=== PATIENT | male | born 1965 | race Caucasian/White ===

== ENCOUNTER 2024-09-17 08:54 | Outpatient (AMB) | payer BC, SELFPAY ==
--- NOTE | 2024-09-17 09:09 | A.OFFPC_ITS ---
Vital Signs 09/17/24 09:10 Height 5 ft 9.75 in Weight 267 lb BMI 38.6 BP 120/86 Blood Pressure Location Rt brachial Position Sitting Pulse 86 Pulse Source Pulse Oximeter Pulse Oximetry (%) 97 Oxygen Delivery Method Room Air Intake Visit Reasons: establish care Lead Material Handler Required: No Accompanied by: Self / Same As Patient Allergies No Known Allergies Allergy (Verified 09/17/24 09:58) Medication List - Last Reconciled 09/17/24 by Hill Campbell MD gabapentin 300 mg PO BID Tobacco use date assessed: 09/17/24 Dental Screening Dental Screen Date: 09/17/24 Did you have a dental visit in the last 12 months?: Yes Did you have a dental problem in the last 6 months where you did not have access to dental care?: No Was dental information given to patient?: Patient has dentist HPI establish care HPI Details Patient comes in today for his annual physical examination and to establish care - is a new patient to the practice Patient and his wlfe, who are both retired police officers, 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 [place] Patient states that he has a history of trigeminal neuralgia, is currently on Gabapentin 300 mg BID and has an appointment to see neurology at [facility] tomorrow morning States that he feels okay otherwise He denies any headaches or dizziness Denies any chest pains, no shortness of breath No nausea/vomiting, no abdominal pain No change in bowel habits noted He denies any acute urinary symptoms He would like to get a referral to Dermatology to have a couple of dark lesions on the left side of his face/cheek checked out States that he had some follow up labs done with his previous PCP back in April 2024 [facility] - he was able to pull up his lab results on his phone Labs done back then showed a HgbA1c of 5.7% and his total cholesterol was elevated although his HDL cholesterol was also high - patient states that he will try to get a printout of these and send them to us to include in his records States that he also had a repeat colonoscopy done back in April 2024 - (+) tubular adenomas and he was advised to get a repeat colonoscopy in 5 years (2028) Patient also has obstructive sleep apnea and has been using his CPAP device regularly for several years now and would like to know who he can reach out to here in [facility] to get a replacement on some parts/supplies for his CPAP device [facility] Medical History (Updated 09/20/24 @ 18:33 by Hill Campbell MD) Obesity (BMI 30-39.9) Vitamin D deficiency Impaired fasting glucose Pure hypercholesterolemia Obstructive sleep apnea Trigeminal neuralgia Surgical History (Updated 09/17/24 @ 10:03 by Hill Campbell MD) History of colonoscopy History of vasectomy Hx of LASIK History of rotator cuff surgery Family History Other Dementia Heart disease Social History Housing: House Patient Tobacco Use Status: Never used Tobacco e-Cigarette/Vaping Use: Never Used Second Hand Smoke Exposure: No service: No Current occupational status: retired Current occupational exposures/hazards: No Cognitive needs: No Hearing needs: No Vision needs: No Questionnaire PHQ-9 Over the last 2 weeks, how often have you been bothered by any of the following problems? 1. Little interest or pleasure in doing things: not at all 2. Feeling down, depressed, or hopeless: not at all 3. Trouble falling or staying asleep, or sleeping too much: not at all 4. Feeling tired or having little energy: not at all 5. Poor appetite or overeating: not at all 6. Feeling bad about yourself - or that you are a failure or have let yourself or your family down: not at all 7. Trouble concentrating on things, such as reading the newspaper or watching television: not at all 8. Moving or speaking so slowly that other people could have noticed. Or the opposite - being so fidgety or restless that you have been moving around a lot more than usual: not at all 9. Thoughts that you would be better off or of hurting yourself in some way: not at all Total score: 0 Depression Screening Interpretation: Negative Depression Screening Done: Yes 38340 - PHQ-9 Billing: Yes Source: Developed by Drs. Chetan Beebe, Arabella Sethi, Herbert Mckeon and colleagues, with an educational schuyler from [employer]. Thrive Questionnaire Date Thrive assessed: 09/17/24 I am a: Patient What is your living situation today?: I choose not to answer this question Within the past 12 months, did the food you bought not last and you didn't have the money to get more?: I choose not to answer this question Within the past 12 months, did you worry whether your food would run out before you got money to buy more?: I choose not to answer this question Do you have trouble paying for medicines?: I choose not to answer this question Do you have trouble getting transportation to medical appointments?: I choose not to answer this question Do you have trouble paying your heating and electricity bill?: I choose not to answer this question Do you have trouble taking care of your child, family member or friend?: I choose not to answer this question Do you have trouble with day-to-day activities such as bathing, preparing meals, shopping, managing finances, etc.?: I choose not to answer this question Are you currently unemployed and looking for a job?: I choose not to answer this question Are you interested in more education?: I choose not to answer this question Please select the resources that you would like help with: None Currently or been in a relationship where the following occur: No concerns reported THRIVE Score: 0 AUDIT C Alcohol Use Questionnaire (AUDIT-C) 1. How often do you have a drink containing alcohol?: Never 3. How often do you have six or more drinks on one occasion?: Never Total Score: 0 Score Reviewed/Action Taken: Yes IRENE-7 AMB Questionnaire IRENE-7 Date IRENE - 7 assessed: 09/17/24 Feeling nervous, anxious, or on edge: 0 = Not at all Not being able to stop or control worryin = Not at all Worrying too much about different things: 0 = Not at all Trouble relaxin = Not at all Being so restless that it is hard to sit still: 0 = Not at all Becoming easily annoyed or irritable: 0 = Not at all Feeling afraid as if something awful might happen: 0 = Not at all Total IRENE-7 score (0-4 normal; 5-9 mild; 10-14 moderate; 15-21 severe): 0 Source: Developed by Drs. Chetan Beebe, Arabella Sethi, Herbert Mckeon and colleagues, with an educational schuyler from [employer]. Review of Systems Const Denies chills, Denies fatigue, Denies fever(s), Denies headache(s), Denies malaise and Denies weakness Eyes Denies blurry vision, Denies change in vision, Denies irritation and Denies itchy eyes ENT Denies dysphagia, Denies dizziness, Denies otalgia, Denies headache(s), Denies nasal congestion, Denies neck pain, Denies odynophagia and Denies sore throat Card Denies chest pain, Denies rapid heart rate, Denies irregular heart rhythm, Denie s palpitations and Denies dyspnea Resp Denies chest congestion, Denies cough, Denies dyspnea and Denies wheezing GI Denies abdominal pain, Denies bloating, Denies constipation, Denies dysphagia, Denies heartburn, Denies diarrhea, Denies nausea, Denies odynophagia and Denies vomiting Denies hematuria, Denies difficulty urinating, Denies dysuria, Denies urinary frequency and Denies urinary urgency Musc Denies back pain, Denies arthralgias, Denies joint swelling, Denies muscle weakness and Denies neck pain Skin/Breast Details: (+) couple of small hyperpigmented lesions on the left side of the face/cheek Denies change in pigmentation, Denies rash and Denies unusual bruising Neuro Denies dizziness, Denies headache(s), Denies paresthesias and Denies weakness Endo Denies fatigue and Denies palpitations Aller/Immun Denies itchy eyes and Denies wheezing Physical exam (Primary Care) Vital Signs: Last Vital Signs Pulse 86 09/17/24 09:10 BP 120/86 09/17/24 09:10 Pulse Ox 97 09/17/24 09:10 Oxygen Delivery Method Room Air 09/17/24 09:10 BMI result Body Mass Index 38.6 Tobacco/Smoking Status: Tobacco use Status Tobacco use date assessed 09/17/24 09/17/24 09:12 Patient Tobacco Use Status Never used Tobacco 09/17/24 09:16 e-Cigarette/Vaping Use Never Used 09/17/24 09:16 PHQ-9: PHQ-9 Score PHQ-9: Total score 0 09/17/24 10:00 Depression Screening Interpretation: Negative Thrive Assessment: Date of Thrive Assessment Date Thrive assessed 09/17/24 09/17/24 09:12 Currently or been in a relationship where the following occur: No concerns reported Const General: no acute distress, alert and awake Orientation/consciousness: patient oriented x3 HENMT Head: Yes normocephalic and Yes atraumatic Ears: external ears normal, TM's normal bilaterally and EAC's normal General nose exam: No nasal discharge present Face and sinus: Yes normal facial exam and Yes sinuses nontender Teeth and gingiva: dentition normal Throat: Yes posterior oropharynx normal and Yes tonsils normal (no TP congestion) Eyes Eyelids: Yes eyelids normal Conjunctivae: conjunctivae normal Pupils: Equal, round and reactive pupils present EOM: EOMs intact bilaterally Neck Neck: Yes supple and No lymphadenopathy Thyroid: Thyroid normal Resp Auscultation: clear to auscultation bilaterally, no rales and no wheezes Cardio Rate: regular rate Rhythm: regular rhythm Heart sounds: no murmurs GI Palpation (GI): Soft to palpation, nontender and No hepatosplenomegaly present Auscultation: normal bowel sounds General: Yes no CVA tenderness Back/Spine/Pelvis Back: no CVA tenderness Thoracic/Lumbar Spine: thoracic and lumbar spine normal to inspection Skin Other: (+) 2 small hyperpigmented skin lesions on the left side of the face / cheek Rashes: no rashes Neuro General: patient oriented x3, moves all extremities, no focal motor deficits and CN's II-XI intact bilaterally Cranial nerves: Yes Equal, round and reactive pupils present Cognition (Neuro): normal cognition Gait exam (Neuro): Normal gait present Extrem General: Yes no clubbing, cyanosis or edema Coding Level of Care Code New Pt Prev Care 40-64y(18787) Diagnoses Annual physical exam Z00.00 Trigeminal neuralgia G50.0 Pure hypercholesterolemia E78.00 Impaired fasting glucose R73.01 Obstructive sleep apnea G47.33 Vitamin D deficiency E55.9 Hyperpigmented skin lesion L81.9 Obesity (BMI 30-39.9) E66.9 Additional Codes PHQ-9 - 77553 - PHQ-9 Billing: Yes ([id number]) Assessment & Plan Assessment & Plan (1) Annual physical exam: Code(s): Z00.00 - Encounter for general adult medical examination without abnormal findings Category: Medical Plan: Results of his labs done back in April 2024 reviewed - this was done mostly on the patient's phone Patient states that he would try to get a printout of these results and send it to us to include in his chart He is up-to-date with his colon cancer screening and will be due for repeat colonoscopy in 2028 (2) Trigeminal neuralgia: Comment: since 2017 Code(s): G50.0 - Trigeminal neuralgia Category: Medical Plan: Continue Gabapentin 300 mg BID He will be seeing [facility] Neurology tomorrow for his initial visit with them (3) Pure hypercholesterolemia: Code(s): E78.00 - Pure hypercholesterolemia, unspecified Category: Medical Plan: Patient has a high total cholesterol level on his labs done back in April 2024 but his HDL cholesterol was also very high; LDL cholesterol was acceptable Reinforced low-cholesterol diet Will recheck his labs and fasting lipids in 4 months for follow-up (4) Impaired fasting glucose: Code(s): R73.01 - Impaired fasting glucose Category: Medical Plan: Patient's HgbA1c was at 5.7% on his labs done back in April 2024 Reinforced low calorie/low carb diet; exercise as tolerated (5) Obstructive sleep apnea: Code(s): G47.33 - Obstructive sleep apnea (adult) (pediatric) Category: Medical Plan: To continue using his CPAP device regularly when sleeping at night - patient states that he has experienced significant improvement of his symptoms since he started using his CPAP device years ago and continues to benefit from its daily use He was provided with the phone numbers for a few companies here in [facility] where he can get his supplies replaced, including [employer], [employer] and [employer] Discussed with patient that at some point, we may also need to refer him to Sleep Medicine for continuing management and follow-up especially if his CPAP device will need to be replaced once it starts wearing down (6) Vitamin D deficiency: Code(s): E55.9 - Vitamin D deficiency, unspecified Category: Medical Plan: Will recheck his vitamin-D level for follow-up in 4 months (7) Hyperpigmented skin lesion: Code(s): L81.9 - Disorder of pigmentation, unspecified Category: Medical Plan: Per request, will refer him to Dermatology for further evaluation and management (8) Obesity (BMI 30-39.9): Code(s): E66.9 - Obesity, unspecified Category: Medical Plan: Reinforced diet/exercise as tolerated/lose weight Plan Follow-up in 4 months Orders: Orders Comprehensive [place]. Panel Fast 4 Months E78.00 - Pure hypercholesterolemia, unspecified, Z00.00 - Encounter for general adult medical examination without abnormal findings Lipid Panel 4 Months E78.00 - Pure hypercholesterolemia, unspecified, Z00.00 - Encounter for general adult medical examination without abnormal findings TSH reflex Free T4 4 Months E78.00 - Pure hypercholesterolemia, unspecified, Z00.00 - Encounter for general adult medical examination without abnormal findings UA CC w/rflx Micro + Cult 4 Months R30.0 - Dysuria, Z00.00 - Encounter for general adult medical examination without abnormal findings Vitamin D 25-OH Total 4 Months E55.9 - Vitamin D deficiency, unspecified, Z00. 00 - Encounter for general adult medical examination without abnormal findings Hemoglobin A1c 4 Months R73.01 - Impaired fasting glucose, Z00.00 - Encounter for general adult medical examination without abnormal findings Complete Blood Count Auto Diff 4 Months D64.9 - Anemia, unspecified, Z00.00 - Encounter for general adult medical examination without abnormal findings Referrals Dermatology Referral L81.9 - Disorder of pigmentation, unspecified
[2024-09-17 09:10] VITALS: BP 120/86; PULSE 86; O2SAT 97; BMI 38.6
== END 2024-09-17 10:17 | disposition home or self-care (01) ==
PROVIDERS: Visit Provider Internal Medicine
DX: Z00.00 Encounter for general adult medical examination without abnormal findings (principal); G50.0 Trigeminal neuralgia; E66.9 Obesity, unspecified; Z68.38 Body mass index [BMI] 38.0-38.9, adult; E78.00 Pure hypercholesterolemia, unspecified; R73.01 Impaired fasting glucose; G47.33 Obstructive sleep apnea (adult) (pediatric); E55.9 Vitamin D deficiency, unspecified; L81.9 Disorder of pigmentation, unspecified

== ENCOUNTER → 2024-09-17 08:54 | Outpatient (BNVA) | payer BC, SELFPAY | PROVIDERS: Visit Provider Internal Medicine | DX: Z00.00 Encounter for general adult medical examination without abnormal findings (principal); G50.0 Trigeminal neuralgia; E78.00 Pure hypercholesterolemia, unspecified; R73.01 Impaired fasting glucose; G47.33 Obstructive sleep apnea (adult) (pediatric); E55.9 Vitamin D deficiency, unspecified; L81.9 Disorder of pigmentation, unspecified; E66.9 Obesity, unspecified; Z68.38 Body mass index [BMI] 38.0-38.9, adult; Z79.899 Other long term (current) drug therapy; Z99.89 Dependence on other enabling machines and devices | CPT/HCPCS: 96127 ==

== ENCOUNTER 2025-01-14 08:57 | Outpatient (REF) | payer BC, SELFPAY ==
[2025-01-14 09:47] LABS: MANUAL DIFF FLAG NO
[2025-01-14 09:55] LABS: Basophils Percent Auto 0.6 % (0-2); Eosinophils Absolute Auto 0.3 X10*3/uL (0.0-0.4); Eosinophils Percent Auto 4.6 % (0-4); Hematocrit 45.3 % (42.0-52.0); Imm Gran Abs Auto 0.01 X10*3/uL (0.00-0.03); Imm Gran Pct Auto 0.2 % (0.0-0.4); Lymphocytes Absolute Auto 1.9 X10*3/uL (1.2-4.9); Lymphocytes Percent Auto 29.7 % (20-40); Mean Corpuscular HGB Conc 33.1 g/dl (31.0-36.0); Mean Corpuscular Hemoglobin 29.5 pg (27.0-33.0); Mean Corpuscular Volume 89.2 fL (80.0-98.0); Mean Platelet Volume 8.5 fL (9.4-12.4); Monocytes Absolute Auto 0.8 X10*3/uL (0.1-1.2); Monocytes Percent Auto 13.3 % (2-11); Neutrophils Absolute Auto 3.2 x10*3/uL (2.0-8.3); Neutrophils Percent Auto 51.6 % (45-73); Platelet Count 270 X10*3/uL (160-400); Red Blood Count 5.08 X10*6/uL (4.60-5.80); Red Cell Distribution Width 12.2 % (11.0-16.0); White Blood Count 6.3 X10*3/uL (4.8-10.8)
[2025-01-14 10:04] LABS: Estimated Average Glucose 111 mg/dL; Hemoglobin A1C 139.4483 umol/L; Hemoglobin A1c % 5.5 % (<6.0); Total Hemoglobin (HGBA1C) 3843.0949 umol/L
[2025-01-14 10:08] LABS: Appearance Urine Clear; Color Urine Yellow; Glucose Urine UA Negative (Negative); Leukocyte Esterase Urine Negative (Negative); Nitrite Urine Negative (Negative); PH 5.5 (5.0-9.0); Specific Gravity - Urine 1.025 (1.005-1.025); Urine Blood Negative (Negative); Urine Ketones Trace mg/dL (Negative); Urine Protein Negative (Neg-Trace)
[2025-01-14 10:33] LABS: Alanine Aminotransferase 21 U/L (0-40); Albumin Level 4.2 g/dL (3.5-5.0); Alkaline Phosphatase 81 U/L (39-117); Anion Gap 12 (12-20); Aspartate Amino Transferase 29 U/L (5-37); Bilirubin Total 0.7 mg/dL (0.0-1.0); Blood Urea Nitrogen 18 mg/dL (9-16); Calcium 9.5 mg/dL (8.4-10.2); Carbon Dioxide 23 mmol/L (22-29); Chloride 108 mmol/L (96-108); Cholesterol 214 mg/dL (<200); Estimated Glomerular Filt Rate > 60; Glucose Fasting 107 mg/dL (60-99); HDL Cholesterol 54 mg/dL (>40); LDL Cholesterol Calculated 143 mg/dL (<100); Potassium 4.2 mmol/L (3.3-5.1); Sodium 139 mmol/L (135-145); Total Protein 7.6 g/dL (6.5-8.0); Triglycerides 87 mg/dL (<150)
[2025-01-14 10:42] LABS: TSH reflex Free T4 1.39 uIU/mL (0.32-4.0); Vitamin D 25-OH Total 27.4 ng/mL (>30)
== END 2025-01-14 08:58 | disposition home or self-care (01) ==
LOC: HO.10HDL 08:57
PROVIDERS: Visit Provider Internal Medicine
DX: Z00.00 Encounter for general adult medical examination without abnormal findings (principal); E78.00 Pure hypercholesterolemia, unspecified; R30.0 Dysuria; D64.9 Anemia, unspecified; R73.01 Impaired fasting glucose; E55.9 Vitamin D deficiency, unspecified
CPT/HCPCS: 36415; 80053; 80061; 81003; 82306; 83036; 84443; 85025

== ENCOUNTER 2025-01-18 12:54 | Outpatient (AMB) | payer BC, SELFPAY ==
[2025-01-18 12:57] VITALS: BP 140/90; PULSE 88; O2SAT 97; BMI 39.1
--- NOTE | 2025-01-18 12:57 | A.OFFPC_ITS ---
Vital Signs 01/18/25 12:57 01/18/25 13:35 Height 5 ft 9.75 in Weight 270 lb 8 oz BMI 39.1 BP 140/90 H 140/88 H Blood Pressure Location Lt brachial Lt brachial Position Sitting Sitting Pulse 88 Pulse Source Pulse Oximeter Pulse Oximetry (%) 97 Oxygen Delivery Method Room Air Intake Visit Reasons: 4 Month F/U International Project Manager Required: No Accompanied by: Self / Same As Patient Allergies No Known Allergies Allergy (Verified 01/18/25 13:16) Medication List - Last Reconciled 01/18/25 by Hill Campbell MD No Known Home Meds Tobacco use date assessed: 01/18/25 Dental Screening Dental Screen Date: 01/18/25 Did you have a dental visit in the last 12 months?: No Did you have a dental problem in the last 6 months where you did not have access to dental care?: No Was dental information given to patient?: No HPI 4 Month F/U HPI Details Patient comes in today for his follow up visit States that he feels okay He denies any headaches or dizziness Denies any chest pains, no shortness of breath No nausea/vomiting, no abdominal pain No change in bowel habits noted He had his follow up labs done a few days ago - to discuss his results [facility] Medical History Obesity (BMI 30-39.9) Vitamin D deficiency Impaired fasting glucose Pure hypercholesterolemia Obstructive sleep apnea Trigeminal neuralgia Surgical History History of colonoscopy History of vasectomy Hx of LASIK History of rotator cuff surgery Family History Other Dementia Heart disease Social History Housing: House Patient Tobacco Use Status: Never used Tobacco e-Cigarette/Vaping Use: Never Used Second Hand Smoke Exposure: No service: No Current occupational status: retired Current occupational exposures/hazards: No Cognitive needs: No Hearing needs: No Vision needs: No Questionnaire PHQ-9 Over the last 2 weeks, how often have you been bothered by any of the following problems? 1. Little interest or pleasure in doing things: not at all 2. Feeling down, depressed, or hopeless: not at all 3. Trouble falling or staying asleep, or sleeping too much: not at all 4. Feeling tired or having little energy: not at all 5. Poor appetite or overeating: not at all 6. Feeling bad about yourself - or that you are a failure or have let yourself or your family down: not at all 7. Trouble concentrating on things, such as reading the newspaper or watching television: not at all 8. Moving or speaking so slowly that other people could have noticed. Or the opposite - being so fidgety or restless that you have been moving around a lot more than usual: not at all 9. Thoughts that you would be better off or of hurting yourself in some way: not at all Total score: 0 Depression Screening Interpretation: Negative Depression Screening Done: Yes 59448 - PHQ-9 Billing: Yes Source: Developed by Drs. Chetan Beebe, Arabella Sethi, Herbert Mckeon and colleagues, with an educational schuyler from [employer]. Thrive Questionnaire Date Thrive assessed: 01/18/25 I am a: Patient What is your living situation today?: I choose not to answer this question Within the past 12 months, did the food you bought not last and you didn't have the money to get more?: I choose not to answer this question Within the past 12 months, did you worry whether your food would run out before you got money to buy more?: I choose not to answer this question Do you have trouble paying for medicines?: I choose not to answer this question Do you have trouble getting transportation to medical appointments?: I choose not to answer this question Do you have trouble paying your heating and electricity bill?: I choose not to answer this question Do you have trouble taking care of your child, family member or friend?: I choose not to answer this question Do you have trouble with day-to-day activities such as bathing, preparing meals, shopping, managing finances, etc.?: I choose not to answer this question Are you currently unemployed and looking for a job?: I choose not to answer this question Are you interested in more education?: I choose not to answer this question Please select the resources that you would like help with: None Currently or been in a relationship where the following occur: I choose not to answer THRIVE Score: 0 AUDIT C Alcohol Use Questionnaire (AUDIT-C) 1. How often do you have a drink containing alcohol?: Monthly or less 2. How many drinks containing alcohol do you have on a typical day when you are drinking?: 1 or 2 3. How often do you have six or more drinks on one occasion?: Less than monthly Total Score: 2 Score Reviewed/Action Taken: Yes IRENE-7 AMB Questionnaire IRENE-7 Date IRENE - 7 assessed: 01/18/25 Feeling nervous, anxious, or on edge: 0 = Not at all Not being able to stop or control worryin = Not at all Worrying too much about different things: 0 = Not at all Trouble relaxin = Not at all Being so restless that it is hard to sit still: 0 = Not at all Becoming easily annoyed or irritable: 0 = Not at all Feeling afraid as if something awful might happen: 0 = Not at all Total IRENE-7 score (0-4 normal; 5-9 mild; 10-14 moderate; 15-21 severe): 0 Source: Developed by Drs. Chetan Beebe, Arabella Sethi, Herbert Mckeon and colleagues, with an educational schuyler from [employer]. Review of Systems Const Denies chills, Denies fatigue, Denies fever(s) and Denies headache(s) ENT Denies dysphagia, Denies dizziness, Denies otalgia, Denies headache(s), Denies neck pain, Denies odynophagia and Denies sore throat Card Denies chest pain, Denies irregular heart rhythm, Denies palpitations and Denies dyspnea Resp Denies chest congestion, Denies cough and Denies dyspnea GI Denies abdominal pain, Denies constipation, Denies dysphagia, Denies heartburn, Denies diarrhea, Denies nausea, Denies odynophagia and Denies vomiting Denies difficulty urinating, Denies dysuria and Denies urinary frequency Musc Denies back pain, Denies arthralgias and Denies neck pain Skin/Breast Denies rash Neuro Denies dizziness, Denies headache(s) and Denies paresthesias Endo Denies fatigue and Denies palpitations Physical exam (Primary Care) Vital Signs: Last Vital Signs Pulse 88 05/05/25 12:57 BP 140/90 H 01/18/25 12:57 Pulse Ox 97 01/18/25 12:57 Oxygen Delivery Method Room Air 01/18/25 12:57 BMI result Body Mass Index 39.1 Tobacco/Smoking Status: Tobacco use Status Tobacco use date assessed 01/18/25 01/18/25 13:00 Patient Tobacco Use Status Never used Tobacco 01/18/25 13:00 e-Cigarette/Vaping Use Never Used 01/18/25 13:00 PHQ-9: PHQ-9 Score PHQ-9: Total score 0 01/18/25 13:00 Depression Screening Interpretation: Negative Thrive Assessment: Date of Thrive Assessment Date Thrive assessed 01/18/25 01/18/25 13:00 Currently or been in a relationship where the following occur: I choose not to answer Const General: no acute distress and alert HENMT Ears: TM's normal bilaterally and EAC's normal Throat: Yes posterior oropharynx normal and Yes tonsils normal (no TP congestion) Neck Neck: Yes supple and No lymphadenopathy Thyroid: Thyroid normal Resp Auscultation: clear to auscultation bilaterally, no rales and no wheezes Cardio Rate: regular rate Rhythm: regular rhythm Heart sounds: no murmurs GI Palpation (GI): Soft to palpation and nontender Auscultation: normal bowel sounds General: Yes no CVA tenderness Back/Spine/Pelvis Back: no CVA tenderness Thoracic/Lumbar Spine: thoracic and lumbar spine normal to inspection Skin Rashes: no rashes Extrem General: Yes no clubbing, cyanosis or edema Results Reviewed Results Reviewed: Laboratory Tests 01/14/25 01/14/25 09:00 09:05 WBC 6.3 Hgb 15.0 Hct 45.3 Plt Count 270 Sodium 139 Potassium 4.2 Creatinine 1.01 Estimated GFR > 60 Fasting Glucose 107 H Hemoglobin A1c % 5.5 Calcium 9.5 AST 29 ALT 21 Triglycerides 87 Cholesterol 214 H LDL Cholesterol, Calc 143 H HDL Cholesterol 54 25-OH Vitamin D Total 27.4 L TSH 1.39 Ur Specific [place] 1.025 Urine Protein Negative Urine Glucose (UA) Negative Urine Blood Negative Urine Nitrite Negative Ur Leukocyte Esterase Negative Coding Level of Care Code Est Pt Level 4 (54471) Complex EM visit Add On G2211 Diagnoses Pure hypercholesterolemia E78.00 Impaired fasting glucose R73.01 Elevated blood pressure reading in office without diagnosis of hypertension R03.0 Trigeminal neuralgia G50.0 Obstructive sleep apnea G47.33 Vitamin D deficiency E55.9 Obesity (BMI 30-39.9) E66.9 Additional Codes PHQ-9 - 42338 - PHQ-9 Billing: Yes ([id number]) Assessment & Plan Assessment & Plan (1) Pure hypercholesterolemia: Code(s): E78.00 - Pure hypercholesterolemia, unspecified Category: Medical Plan: Results of his labs done a few days ago reviewed and discussed with patient - he is advised that his total and LDL cholesterol levels are high (214 mg/dl and 143 mg/dl respectively); HDL is also slightly higher than average at 54 mg/dl Reinforced low-cholesterol diet Will recheck his labs and fasting lipids in 4 months for follow-up (2) Impaired fasting glucose: Code(s): R73.01 - Impaired fasting glucose Category: Medical Plan: Patient's FBS was slightly elevated at 107 mg/dl but his HgbA1c remains normal at 5.5% (was at 5.7% back in April 2024) Reinforced low calorie/low carb diet; exercise as tolerated (3) Elevated blood pressure reading in office without diagnosis of hypertension: Code(s): R03.0 - Elevated blood-pressure reading, without diagnosis of hypertension Category: Medical Plan: He is advised that his initial BP here in the office is high at 140/90 mm and repeat BP a few minutes later is also high at 140/88 mm Advised goal is systolic BP of 120 mm or less Discussed low sodium diet Patient is instructed to continue monitoring his blood pressure regularly and to call for further instructions if his BP is consistently high over the next few weeks (4) Trigeminal neuralgia: Comment: since 2018 Code(s): G50.0 - Trigeminal neuralgia Category: Medical Plan: States that his jaw symptoms have mostly subsided and have not bothered him too much lately Continue Gabapentin 300 mg BID - he takes this PRN for now Follow up with [facility] as scheduled (5) Obstructive sleep apnea: Code(s): G47.33 - Obstructive sleep apnea (adult) (pediatric) Category: Medical Plan: Continue using his CPAP device regularly when sleeping at night - patient states that he has experienced significant improvement of his symptoms since he started using his CPAP device years ago and continues to benefit from its daily use (6) Vitamin D deficiency: Code(s): E55.9 - Vitamin D deficiency, unspecified Category: Medical Plan: He is advised that his Vitamin D level was slightly low on his recent labs and he should start back on OTC Vitamin D3 1000 units QD (7) Obesity (BMI 30-39.9): Code(s): E66.9 - Obesity, unspecified Category: Medical Plan: Reinforced diet/exercise as tolerated/lose weight Plan Follow-up in 4 months Orders: Orders Lipid Panel 4 Months E78.00 - Pure hypercholesterolemia, unspecified Hemoglobin A1c 4 Months E11.9 - Type 2 diabetes mellitus without complications Comprehensive [place]. Panel Fast 4 Months E78.00 - Pure hypercholesterolemia, unspecified UA CC w/rflx Micro + Cult 4 Months R30.0 - Dysuria Vitamin D 25-OH Total 4 Months E55.9 - Vitamin D deficiency, unspecified
[2025-01-18 13:35] VITALS: BP 140/88
== END 2025-01-18 13:59 | disposition home or self-care (01) ==
LOC: HO.HMCH 12:55
PROVIDERS: PCP Internal Medicine; Visit Provider Internal Medicine
DX: E78.00 Pure hypercholesterolemia, unspecified (principal); R73.01 Impaired fasting glucose; E66.9 Obesity, unspecified; Z68.39 Body mass index [BMI] 39.0-39.9, adult; R03.0 Elevated blood-pressure reading, without diagnosis of hypertension; G50.0 Trigeminal neuralgia; G47.33 Obstructive sleep apnea (adult) (pediatric); E55.9 Vitamin D deficiency, unspecified

== ENCOUNTER → 2025-01-18 12:54 | Outpatient (BNVA) | payer BC, SELFPAY | PROVIDERS: PCP Internal Medicine; Visit Provider Internal Medicine | DX: E78.00 Pure hypercholesterolemia, unspecified (principal); R73.01 Impaired fasting glucose; R03.0 Elevated blood-pressure reading, without diagnosis of hypertension; G50.0 Trigeminal neuralgia; G47.33 Obstructive sleep apnea (adult) (pediatric); E55.9 Vitamin D deficiency, unspecified; E66.9 Obesity, unspecified; Z68.39 Body mass index [BMI] 39.0-39.9, adult; Z79.891 Long term (current) use of opiate analgesic | CPT/HCPCS: 96127 ==

== ENCOUNTER 2025-07-02 08:55 | Outpatient (REF) | payer BC, SELFPAY ==
--- OUTSIDE RECORDS SUMMARY | 2025-07-02 09:31 | XMS_ITS | Patient Health Record ---
Author Organization [facility] Address [address] [place] [address] Support Name Relationship Address Phone DOUGLAS NG Guarantor Unknown [phone] Reason For Referral No Information Medications Medication SIG (Take, Route, Frequency, Duration) Notes Start Date End Date Status Polytrim 24673-5.1 UNIT/ML 1 drop into a ffected eye Ophthalmic Four times a day; Duration: 5 day(s) 09/06/2017 Active Plan Of Treatment No Information Insurance Providers Payer Name Payer Address Payer Phone Subscriber Number Group Number Insured Name Patient Relationship to Insured Coverage Start Date Coverage End Date [facility] [address] [place], [place] [id number] DOUGLAS NG Self - patient is the insured
[2025-07-02 10:35] LABS: Hemoglobin A1C 145.1843 umol/L; Total Hemoglobin (HGBA1C) 3901.2875 umol/L
[2025-07-02 10:36] LABS: Alanine Aminotransferase 24 U/L (0-40); Albumin Level 4.5 g/dL (3.5-5.0); Alkaline Phosphatase 89 U/L (39-117); Anion Gap 12 (12-20); Aspartate Amino Transferase 30 U/L (5-37); Blood Urea Nitrogen 14 mg/dL (9-16); Calcium 9.7 mg/dL (8.4-10.2); Carbon Dioxide 25 mmol/L (22-29); Chloride 106 mmol/L (96-108); Cholesterol 221 mg/dL (<200); Estimated Glomerular Filt Rate > 60; HDL Cholesterol 53 mg/dL (>40); Potassium 4.1 mmol/L (3.3-5.1); Sodium 139 mmol/L (135-145); Total Protein 7.6 g/dL (6.5-8.0); Triglycerides 82 mg/dL (<150)
[2025-07-02 13:16] LABS: Appearance Urine Clear; Glucose Urine UA Negative (Negative); PH 6.5 (5.0-9.0); Specific Gravity - Urine 1.010 (1.005-1.025)
== END 2025-07-02 08:56 | disposition home or self-care (01) ==
LOC: HO.10HDL 08:55
PROVIDERS: Visit Provider Internal Medicine
DX: E78.00 Pure hypercholesterolemia, unspecified (principal); E11.9 Type 2 diabetes mellitus without complications; E55.9 Vitamin D deficiency, unspecified; R30.0 Dysuria
CPT/HCPCS: 36415; 80053; 80061; 81003; 82306; 83036

== ENCOUNTER 2025-07-07 14:57 | Outpatient (AMB) | payer BC, SELFPAY ==
--- NOTE | 2025-07-07 15:06 | MHC.PC.OV ---
Vital Signs 07/07/25 15:15 Height 5 ft 9.75 in Weight 265 lb BMI 38.3 BP 122/84 Blood Pressure Location Lt brachial Position Sitting Pulse 88 Pulse Source Pulse Oximeter Pulse Oximetry (%) 95 Oxygen Delivery Method Room Air Intake Visit Reasons: 4 month follow up Kennel Aide Required: No Accompanied by: Self / Same As Patient Allergies No Known Allergies Allergy (Verified 07/07/25 15:30) Medication List - Last Reconciled 07/07/25 by Hill Campbell MD [CPAP device and all related supplies As directed] Tobacco use date assessed: 07/07/25 Dental Screening Dental Screen Date: 07/07/25 Did you have a dental visit in the last 12 months?: No Did you have a dental problem in the last 6 months where you did not have access to dental care?: No Was dental information given to patient?: Patient has dentist HPI 4 month follow up HPI Details Patient comes in today for his follow up visit States that he feels okay except for (+) tenderness over his right testicle for the past couple of weeks Feels that his right testicle is somewhat swollen at times when the pain increases He denies any dysuria or urinary frequency He denies any headaches or dizziness; denies any fever Denies any chest pains, no shortness of breath No nausea/vomiting, no abdominal pain No change in bowel habits noted He had his follow up labs done a few days ago - to discuss his results [facility] Medical History Obesity (BMI 30-39.9) Vitamin D deficiency Impaired fasting glucose Pure hypercholesterolemia Obstructive sleep apnea Trigeminal neuralgia Surgical History History of colonoscopy History of vasectomy Hx of LASIK History of rotator cuff surgery Family History Other Dementia Heart disease Questionnaire Thrive Questionnaire Date Thrive assessed: 01/18/25 I am a: Patient What is your living situation today?: I choose not to answer this question Within the past 12 months, did the food you bought not last and you didn't have the money to get more?: I choose not to answer this question Within the past 12 months, did you worry whether your food would run out before you got money to buy more?: I choose not to answer this question Do you have trouble paying for medicines?: I choose not to answer this question Do you have trouble getting transportation to medical appointments?: I choose not to answer this question Do you have trouble paying your heating and electricity bill?: I choose not to answer this question Do you have trouble taking care of your child, family member or friend?: I choose not to answer this question Do you have trouble with day-to-day activities such as bathing, preparing meals, shopping, managing finances, etc.?: I choose not to answer this question Are you currently unemployed and looking for a job?: I choose not to answer this question Are you interested in more education?: I choose not to answer this question Please select the resources that you would like help with: None Currently or been in a relationship where the following occur: I choose not to answer THRIVE Score: 0 AUDIT C Alcohol Use Questionnaire (AUDIT-C) 1. How often do you have a drink containing alcohol?: Monthly or less 2. How many drinks containing alcohol do you have on a typical day when you are drinking?: 1 or 2 3. How often do you have six or more drinks on one occasion?: Less than monthly Total Score: 2 Score Reviewed/Action Taken: Yes IRENE-7 AMB Questionnaire IRENE-7 Date IRENE - 7 assessed: 01/18/25 Source: Developed by Drs. Chetan Beebe, Arabella Sethi, Herbert Mckeon and colleagues, with an educational schuyler from [employer]. Review of Systems Const Denies chills, Denies fatigue, Denies fever(s) and Denies headache(s) ENT Denies dysphagia, Denies dizziness, Denies otalgia, Denies headache(s), Denies neck pain, Denies odynophagia and Denies sore throat Card Denies chest pain, Denies irregular heart rhythm, Denies palpitations and Denies dyspnea Resp Denies chest congestion, Denies cough and Denies dyspnea GI Denies abdominal pain, Denies constipation, Denies dysphagia, Denies heartburn, Denies diarrhea, Denies nausea, Denies odynophagia and Denies vomiting Denies difficulty urinating, Denies dysuria, Reports testicular pain (right) and Denies urinary frequency Musc Denies back pain, Denies arthralgias and Denies neck pain Skin/Breast Denies rash Neuro Denies dizziness, Denies headache(s) and Denies paresthesias Endo Denies fatigue and Denies palpitations Physical exam (Primary Care) Vital Signs: Last Vital Signs Pulse 88 07/07/25 15:15 BP 122/84 07/07/25 15:15 Pulse Ox 95 07/07/25 15:15 Oxygen Delivery Method Room Air 07/07/25 15:15 BMI result Body Mass Index 38.3 Tobacco/Smoking Status: Tobacco use Status Tobacco use date assessed 07/07/25 07/07/25 15:13 Patient Tobacco Use Status Never used Tobacco 07/07/25 15:13 e-Cigarette/Vaping Use Never Used 07/07/25 15:13 Thrive Assessment: Date of Thrive Assessment Date Thrive assessed 01/18/25 07/07/25 15:13 Currently or been in a relationship where the following occur: I choose not to answer Const General: no acute distress and alert HENMT Ears: TM's normal bilaterally and EAC's normal Throat: Yes posterior oropharynx normal and Yes tonsils normal (no TP congestion) Neck Neck: Yes supple and No lymphadenopathy Thyroid: Thyroid normal Resp Auscultation: clear to auscultation bilaterally, no rales and no wheezes Cardio Rate: regular rate Rhythm: regular rhythm Heart sounds: no murmurs GI Palpation (GI): Soft to palpation and nontender Auscultation: normal bowel sounds General: Yes no CVA tenderness Testes: no testicular swelling and testicular tenderness on the right Back/Spine/Pelvis Back: no CVA tenderness Thoracic/Lumbar Spine: No lumbar spinal tenderness Skin Rashes: no rashes Extrem General: Yes no clubbing, cyanosis or edema Results Reviewed Results Reviewed: Laboratory Tests 07/02/25 09:02 Sodium 139 Potassium 4.1 Creatinine 1.01 Estimated GFR > 60 Fasting Glucose 99 Hemoglobin A1c % 5.6 Calcium 9.7 AST 30 ALT 24 Triglycerides 82 Cholesterol 221 H LDL Cholesterol, Calc 152 H HDL Cholesterol 53 25-OH Vitamin D Total 37.3 Ur Specific [place] 1.010 Urine Protein Negative Urine Glucose (UA) Negative Urine Blood Negative Urine Nitrite Negative Ur Leukocyte Esterase Negative Coding Level of Care Code Est Pt Level 4 (55967) Diagnoses Pure hypercholesterolemia E78.00 Impaired fasting glucose R73.01 Elevated blood pressure reading in office without diagnosis of hypertension R03.0 Trigeminal neuralgia G50.0 Obstructive sleep apnea G47.33 Right testicular pain N50.811 Vitamin D deficiency E55.9 Obesity (BMI 30-39.9) E66.9 Assessment & Plan Assessment & Plan (1) Pure hypercholesterolemia: Code(s): E78.00 - Pure hypercholesterolemia, unspecified Category: Medical Plan: Results of his labs done a few days ago reviewed and discussed with patient - he is advised that his total and LDL cholesterol levels are higher than they were a few months ago (currently at 221 mg/dl and 152 mg/dl respectively); HDL is also slightly higher than average at 53 mg/dl Reinforced low-cholesterol diet Will recheck his labs and fasting lipids in 4 months for follow-up (2) Impaired fasting glucose: Code(s): R73.01 - Impaired fasting glucose Category: Medical Plan: Patient's FBS was slightly elevated at 107 mg/dl previously but is now normal at 99 mg/dl; his HgbA1c remains normal at 5.6% (was at 5.5% a few months ago) Reinforced low calorie/low carb diet; exercise as tolerated (3) Elevated blood pressure reading in office without diagnosis of hypertension: Code(s): R03.0 - Elevated blood-pressure reading, without diagnosis of hypertension Category: Medical Plan: His blood pressure appears to be much better controlled today - reminded of systolic BP goal of 120 mm or less Reinforced low sodium diet Patient is reminded to continue monitoring his blood pressure regularly (4) Trigeminal neuralgia: Comment: since 2018 Code(s): G50.0 - Trigeminal neuralgia Category: Medical Plan: States that his jaw symptoms have mostly subsided and have not bothered him too much lately Continue Gabapentin 300 mg BID - he takes this PRN for now Follow up with [facility]rology as scheduled (5) Obstructive sleep apnea: Code(s): G47.33 - Obstructive sleep apnea (adult) (pediatric) Category: Medical Plan: Continue using his CPAP device regularly when sleeping at night - patient states that he has experienced significant improvement of his symptoms since he started using his CPAP device years ago and continues to benefit from its daily use (6) Right testicular pain: Code(s): N50.811 - Right testicular pain Category: Medical Plan: Will start patient empirically on Levofloxacin 500 mg QD x 10 days Will also send him for right testicular/scrotal US for further evaluation (7) Vitamin D deficiency: Code(s): E55.9 - Vitamin D deficiency, unspecified Category: Medical Plan: Continue OTC Vitamin D3 1000 units QD (8) Obesity (BMI 30-39.9): Code(s): E66.9 - Obesity, unspecified Category: Medical Plan: Reinforced diet/exercise as tolerated/lose weight Plan Follow-up in 4 months Orders: Orders US scrotum 07/07/25 N50.811 - Right testicular pain Complete Blood Count Auto Diff 4 Months D64.9 - Anemia, unspecified Comprehensive [place]. Panel Fast 4 Months E78.00 - Pure hypercholesterolemia, unspecified UA CC w/rflx Micro + Cult 4 Months R30.0 - Dysuria Lipid Panel 4 Months E78.00 - Pure hypercholesterolemia, unspecified Medications: New levofloxacin 500 mg PO DAILY 10 tabs 0RF 10 days
[2025-07-07 15:15] VITALS: BP 122/84; PULSE 88; O2SAT 95; BMI 38.3
--- OUTSIDE RECORDS SUMMARY | 2025-07-07 21:12 | XMS_ITS | Patient Health Record ---
Author Organization [facility] Address [address] [place] [address] Support Name Relationship Address Phone DOUGLAS NG Guarantor Unknown [phone] Reason For Referral No Information Medications Medication SIG (Take, Route, Frequency, Duration) Notes Start Date End Date Status Polytrim 30738-3.1 UNIT/ML 1 drop into a ffected eye Ophthalmic Four times a day; Duration: 5 day(s) 09/06/2017 Active Plan Of Treatment No Information Insurance Providers Payer Name Payer Address Payer Phone Subscriber Number Group Number Insured Name Patient Relationship to Insured Coverage Start Date Coverage End Date [facility] [address] [place], [place] [id number] DOUGLAS NG Self - patient is the insured
== END 2025-07-07 15:44 | disposition home or self-care (01) ==
LOC: HO.HMCH 14:58
PROVIDERS: PCP Internal Medicine; Visit Provider Internal Medicine
DX: E78.00 Pure hypercholesterolemia, unspecified (principal); R73.01 Impaired fasting glucose; E66.9 Obesity, unspecified; Z68.38 Body mass index [BMI] 38.0-38.9, adult; R03.0 Elevated blood-pressure reading, without diagnosis of hypertension; G50.0 Trigeminal neuralgia; G47.33 Obstructive sleep apnea (adult) (pediatric); N50.811 Right testicular pain; E55.9 Vitamin D deficiency, unspecified

== ENCOUNTER 2025-09-01 14:17 | Outpatient (REF) | payer BC, SELFPAY ==
--- NOTE | ~2025-09-01 | US_ITS ---
EXAMINATION: US SCROTUM TESTICULAR CLINICAL INFORMATION: Right testicular pain.. COMPARISON: None available. TECHNIQUE: A sonogram of the scrotum contents was performed assessing bird-scale appearance and color Doppler flow. Spectral Doppler analysis of the arterial and venous flow were performed in the testes bilaterally. FINDINGS: RIGHT: Right testicle measures 4.5 x 2.5 x 4.0 cm, volume 73.7 mL. Normal echotexture. No solid or cystic lesions.. Questionable microlithiasis. Spectral Doppler analysis of the arterial and venous flow is normal in the right testis. Right epididymal head is normal in size. Small volume of fluid in the scrotal sac. No prominence of the pampiniform plexus. Right epididymal Doppler flow is normal. LEFT: Left testicle measures 4.7 x 2.5 x 3.3 cm, volume 20.5 mL. Normal echotexture. No solid or cystic lesion. Questionable microlithiasis.. Spectral Doppler analysis of the arterial and venous flow is normal in the left testis. Left epididymal head is normal in size. There is a 0.6 cm anechoic/cyst, head of the epididymis. Small amount of free fluid in the scrotal sac. No prominence of the pampiniform plexus. Left epididymal Doppler flow is normal. Scrotal sac calcification. US/US scrotum IMPRESSION: Bilateral hydroceles, small volume. No testicular mass. No testicular torsion. No varicocele. Electronically signed by: Jerod Charles MD 09/01/2025 02:43 PM EST
--- OUTSIDE RECORDS SUMMARY | 2025-09-01 19:06 | XMS_ITS | Patient Health Record ---
Author Organization [facility] Address [address] [place] [address] Support Name Relationship Address Phone DOUGLAS NG Guarantor Unknown [phone] Reason For Referral No Information Medications Medication SIG (Take, Route, Frequency, Duration) Notes Start Date End Date Status Polytrim 44696-5.1 UNIT/ML 1 drop into a ffected eye Ophthalmic Four times a day; Duration: 5 day(s) 09/06/2017 Active Plan Of Treatment No Information Insurance Providers Payer Name Payer Address Payer Phone Subscriber Number Group Number Insured Name Patient Relationship to Insured Coverage Start Date Coverage End Date [facility] [address] [place], [place] [id number] DOUGLAS NG Self - patient is the insured
== END 2025-09-01 14:18 | disposition home or self-care (01) ==
LOC: HO.HMGCX 14:17
PROVIDERS: PCP Internal Medicine; Visit Provider Internal Medicine
DX: N50.811 Right testicular pain (principal)
CPT/HCPCS: 76870

== ENCOUNTER → 2025-09-01 14:19 | Outpatient (BNV) | payer BC, SELFPAY | PROVIDERS: PCP Internal Medicine; Visit Provider Radiology Diagnostic Radiology | DX: N43.3 Hydrocele, unspecified (principal) | CPT/HCPCS: 76870 ==